=== PATIENT | male | born 1980 | race Two or more races ===

== ENCOUNTER 2022-05-05 13:59 | Outpatient (CLI) | payer OTHER | END 2022-05-05 14:00 | disposition home or self-care (01) | LOC: BICRAD 13:59 | PROVIDERS: ATTEND Nurse Practitioner Family | DX: S69.92XA Unspecified injury of left wrist, hand and finger(s), initial encounter (principal); S62.635A Displaced fracture of distal phalanx of left ring finger, initial encounter for closed fracture ==